=== PATIENT | male | born 1960 | race Caucasian/White ===

== ENCOUNTER 2021-09-08 14:49 | Outpatient (CLI) | payer BC, SELFPAY ==
[2021-09-08 15:29] LABS: Hematocrit 46.1 % (40.0-54.0); Hemoglobin 16.2 g/dL (14.0-18.0); Mean Corpuscular HGB Conc 35.1 g/dL (32.0-36.0); Mean Corpuscular Hemoglobin 36.4 pg (27.0-31.0); Mean Corpuscular Volume 103.6 fL (78.0-102.0); Mean Platelet Volume 8.9 fl (8.7-11.0); Platelet Count Result 445 K/mm3 (150-420); Red Blood Count 4.45 M/mm3 (4.70-6.10); Red Cell Distribution Width 13.1 % (11.6-14.4); White Blood Count 9.2 K/mm3 (4.8-10.8)
[2021-09-08 16:07] LABS: Alanine Aminotransferase 37 U/L (16-63); Alkaline Phosphatase 81 U/L (46-116); Anion Gap 10 mmol/L (8-16); Aspartate Amino Transferase 20 U/L (15-37); Bilirubin,Total 0.2 mg/dL (0.00-1.00); Blood Urea Nitrogen 19 mg/dL (7-18); Calcium 9.3 mg/dL (8.5-10.1); Carbon Dioxide 29 mmol/L (21-32); Chloride 100 mmol/L (98-108); Cholesterol 222 mg/dL (0-200); Estimated Glomerular Filt Rate > 60; Glucose 95 mg/dL (70-99); HDL Direct 62 mg/dL (40-60); LDL Cholesterol Calculated 146 mg/dL (<130); Osmolality Calculated 290 mOsm/kg (285-295); Potassium 4.9 mmol/L (3.5-5.1); Prostate Specific Antigen 0.8 ng/mL (< OR = 4.0); Sodium 139 mmol/L (136-145); Total Protein 7.1 g/dL (6.4-8.2); Triglycerides 71 mg/dL (0-150)
== END 2021-09-08 14:50 | disposition home or self-care (01) ==
LOC: CHSLAB 14:52
PROVIDERS: PCP Family Medicine; Visit Provider Family Medicine
DX: Z00.00 Encounter for general adult medical examination without abnormal findings (principal); R35.1 Nocturia
CPT/HCPCS: 36415; 80053; 80061; 84153; 85027; G0103

== ENCOUNTER 2021-10-06 01:44 | Day surgery (SDC) | payer BC, SELFPAY ==
[2021-10-03 11:47] VITALS: BMI 24.4
--- NOTE | 2021-10-05 13:49 | P.PNAN_ITS ---
Anes - Initial Pre Proc Eval Procedure: Operation Date: 10/06/21 09:00 Proposed Procedures p Screening Colonoscopy - Martin Carbone DO Date/Time: 10/05/21 13:49 Surgeon: Martin Carbone DO Pre Op Diagnosis: hx of colon polyps Patient Data Age: 60 Gender: M Height: 1.8 m Weight: 79.5 kg Allergies Allergy/AdvReac Type Severity Reaction Status Date / Time No Known Allergies Allergy Verified 10/06/21 07:46 Home Medications Medication Instructions Recorded Confirmed Type tamsulosin 0.4 mg capsule 0.4 mg PO DAILY #90 cap 09/08/21 10/03/21 Rx atorvastatin 40 mg tablet 40 mg PO DAILY #90 tablet 09/09/21 10/03/21 Rx epinephrine [EpiPen] 0.3 mg IM PRN 10/03/21 10/03/21 History Patient hx anesthesia problems: none Family hx anesthesia problems: none Results Review: All pre-operative results and documents have been reviewed as part of the pre-operative evaluation. [facility] Past Medical History Medical History (Updated 10/05/21 @ 13:50 by Cholo Domingo DO) Cigarette nicotine dependence Hyperlipidemia Surgical History Surgical History (Updated 09/08/21 @ 14:04 by Selene Restrepo) History of cholecystectomy 2020 History of hernia repair Family History Family History (Updated 09/08/21 @ 14:05 by Selene Restrepo) Father Pancreatic cancer Mother Heart disease Social History Social History (Updated 09/08/21 @ 14:06 by Selene Restrepo) Smoking packs per day: 1 Smoking cigarettes per day: 20.0 Years smoked: 30 Smoking pack-years: 30.00 Smoking status: Current every day smoker Tobacco type: cigarettes Alcohol intake: current Drinks per week: 6 Substance use type: does not use Living arrangements: alone Spiritual care concerns: No Anes - Eval Final PreProcedure Day of Procedure 10/05/21 13:49 Patient weight: normal Heart: regular rate and rhythm Lungs: clear to auscultation and normal air movement Airway: Mallampati scale class II Neurological: alert and oriented Last oral intake: >/= 8 hours ASA classification: II Emergent: no Anesthetic plan: proceed Anesthesia type and monitoring: general GIVS and standard monitoring Results Review: All pre-operative results and documents have been reviewed as part of the pre-operative evaluation. Informed Consent: The patient's anesthetic plan and its attendant risks and benefits were discussed with the patient/family/POA. Questions were solicited and answers provided to the satisfaction of the patient/family/POA.
[2021-10-06 07:48] VITALS: BP 118/69; PULSE 62; RESP 18; TEMP 36.3; O2SAT 97
[2021-10-06] MEDS: LACTATED RINGERS 1,000 ML 150 ML IV CONT (07:57)
[2021-10-06] MEDS: GENTAMICIN 80MG/SOD CHL 50 ML 80 MG/50 ML BAG 100 MG IVPB (07:58)
[2021-10-06] MEDS: AMPICILLIN 2 GM/NS 100 ML 2 GM/100 ML BAG IVPB (08:23)
--- NOTE | 2021-10-06 08:40 | PM.IMHP ---
H&P: HPI History of Present Illness Date/Time: 10/06/21 08:40 Chief Complaint: history of colon polyps Narrative: this is a 60-year-old man who presents for colonoscopy. He last had a colonoscopy about 1 year ago and 4 polyps were removed. One of the polyps was slightly larger, and the patient and his think that it was about 1 cm. He has had some occasional bleeding from internal hemorrhoids. Most of the time he only notices blood when wiping. He denies any family history of colon cancer. Review of Systems Review of Systems: All systems reviewed & are unremarkable except as noted in HPI and below Constitutional: Constitutional: Denies chills, Denies fever(s), Denies headache(s) and Denies weight loss Eyes: Eyes: Denies change in vision ENT: Denies dizziness, Denies headache(s), Denies neck mass and Denies throat swelling Cardiovascular: Cardiovascular: Denies chest pain, Denies lightheadedness and Denies dyspnea Respiratory: Respiratory: Denies cough, Denies dyspnea and Denies wheezing Gastrointestinal: Gastrointestinal: Denies abdominal pain, Denies change in bowel habits, Denies nausea and Denies vomiting Genitourinary: Genitourinary: Denies hematuria and Denies dysuria Musculoskeletal: Musculoskeletal: Reports as per HPI Integumentary/Breasts: Skin/Breast: Reports as per HPI Neurologic: Denies dizziness and Denies headache(s) Allergic/Immunologic: Allergic/Immunologic: Denies throat swelling and Denies wheezing [facility] Past Medical History Medical History (Updated 10/06/21 @ 08:42 by Martin Carbone DO) Cigarette nicotine dependence Hyperlipidemia Surgical History Surgical History (Updated 09/08/21 @ 14:04 by Selene Restrepo) History of cholecystectomy 2020 History of hernia repair Family History Family History (Updated 09/08/21 @ 14:05 by Selene Restrepo) Father Pancreatic cancer Mother Heart disease Social History Social History (Updated 09/08/21 @ 14:06 by Selene Restrepo) Smoking packs per day: 1 Smoking cigarettes per day: 20.0 Years smoked: 30 Smoking pack-years: 30.00 Smoking status: Current every day smoker Tobacco type: cigarettes Alcohol intake: current Drinks per week: 6 Substance use type: does not use Living arrangements: alone Spiritual care concerns: No Meds Home Medications and Allergies Home Medications Medication Instructions Recorded Confirmed Type tamsulosin 0.4 mg capsule 0.4 mg PO DAILY #90 cap 09/08/21 10/03/21 Rx atorvastatin 40 mg tablet 40 mg PO DAILY #90 tablet 09/09/21 10/03/21 Rx epinephrine [EpiPen] 0.3 mg IM PRN 10/03/21 10/03/21 History Allergies Allergy/AdvReac Type Severity Reaction Status Date / Time No Known Allergies Allergy Verified 10/06/21 07:46 Vital Signs Vital Signs - 24 hr 10/06/21 07:48 Temperature 36.3 C L Pulse Rate 62 Respiratory Rate 18 Blood Pressure 118/69 Pulse Oximetry 97 Exam Const: General: no acute distress and alert Orientation/consciousness: patient oriented x3 HENMT: Head: normocephalic and atraumatic Ears: hearing grossly normal bilaterally General nose exam: Normal nares present Mouth: Yes Normal oral and palatal mucosa present Eyes: Periorbital: periorbital findings normal Sclera: sclerae normal EOM: EOMs intact bilaterally Neck: Neck: normal visual inspection, no lymphadenopathy and trachea midline Chest: Chest palpation & inspection: normal inspection of the chest Resp: Effort & Inspection: normal respiratory effort Auscultation: clear to auscultation bilaterally Cardio: Jugular venous distension: no JVD Rate: regular rate Rhythm: regular rhythm Heart sounds: S1 normal heart sound present and S2 normal heart sound present Peripheral pulses: Peripheral pulses 2+ throughout GI: Inspection: normal to inspection GI Palp: Yes Soft to palpation, No Tenderness to palpation present (GI), No Guarding due to palpation present (GI)
[2021-10-06 09:12] VITALS: BP 92/60; PULSE 62; RESP 23; O2SAT 94
[2021-10-06 09:22] VITALS: BP 127/65; PULSE 62; RESP 23; O2SAT 97
[2021-10-06 09:32] VITALS: BP 142/97; PULSE 56; RESP 22; O2SAT 99
== END 2021-10-06 09:47 | disposition home or self-care (01) ==
PROVIDERS: PCP Family Medicine; Visit Provider Surgery
PROC: 0DJD8ZZ Inspection of Lower Intestinal Tract, Via Natural or Artificial Opening Endoscopic (ICD-10-PCS; CPT 45378; principal; 2021-10-06 09:00)
DX: Z12.11 Encounter for screening for malignant neoplasm of colon (principal); E78.5 Hyperlipidemia, unspecified; F17.210 Nicotine dependence, cigarettes, uncomplicated; K57.30 Diverticulosis of large intestine without perforation or abscess without bleeding
CPT/HCPCS: 45378; J0290; J1580; J2704; J7120